=== PATIENT | male | born 1995 | race Caucasian/White ===

== ENCOUNTER 2017-12-01 21:41 | Emergency (ER) | payer OTHER ==
[~2017-12-01] VITALS: Ht 180.3 cm; Wt 133.4 kg
[2017-12-01 21:41] VITALS: BP_SYST 160
[2017-12-01 23:22] LABS: BILIRUBIN,URINE NEGATIVE (NEGATIVE); CLARITY/URINE CLEAR (CLEAR); COLOR,URINE YELLOW (YELLOW); GLUCOSE,URINE NEGATIVE (NEGATIVE); KETONES,URINE NEGATIVE (NEGATIVE); LEUKOCYTE ESTERASE ,URINE NEGATIVE (NEGATIVE); NITRITE, URINE NEGATIVE (NEGATIVE); PH,URINE 5.5 (5.0-8.0); PROTEIN URINE NEGATIVE (NEGATIVE); UROBILINOGEN,URINE 0.2 (0.2-1.0)
[2017-12-01 23:24] LABS: BLOOD, URINE TRACE (NEGATIVE)
--- NOTE | 2017-12-01 23:34 | NUR ---
Patient to ER bed 4 to gown for evaluation. Side rails up. Report given to Roseanne SHARP.
[2017-12-01 23:35] LABS: BACTERIA,URINE FEW /HPF (None Seen); RBC,URINE 0-3 /HPF (0-3); WBC,URINE 0-3 /HPF (0-3)
--- NOTE | 2017-12-01 23:40 | NUR ---
Patient AOx4, ambulatory, presents to ER with complaint of abdominal pain x30 minutes 04/13. Patient states no nausea or vomiting. No other symptoms or compliants at this time. Parents at bedside.
--- NOTE | 2017-12-01 23:48 | NUR ---
ER MD Lopez at bedside for medical evaluation.
[2017-12-02 00:49] LABS: BASOPHILS % (AUTO) 0.4 % (0.0-2.0); EOSINOPHILS # (AUTO) 0.1 K/uL (0.0-0.4); EOSINOPHILS % (AUTO) 1.2 % (0.0-4.0); HEMATOCRIT 43.9 % (36-54); LYMPHOCYTES # (AUTO) 2.6 K/uL (1.0-5.5); LYMPHOCYTES % (AUTO) 21.1 % (20.5-51.5); MEAN CORPUSCULAR HEMOGLOBIN 31 pg (27-31); MEAN CORPUSCULAR HGB CONC 34 % (32-36); MEAN CORPUSCULAR VOLUME 91 fL (79.0-98.0); MONOCYTES # (AUTO) 0.5 K/uL (0.0-1.0); MONOCYTES % (AUTO) 4.5 % (1.7-9.3); NEUTROPHILS % (AUTO) 72.8 % (40.0-70.0); PLATELET COUNT (AUTO) 263 K/uL (130-430); RED CELL DISTRIBUTION WIDTH 11.7 % (9.0-15.0); WHITE BLOOD COUNT (AUTO) 12.2 K/uL (4.5-11.0)
[2017-12-02 00:56] LABS: CALCIUM 8.8 mg/dL (8.4-11.0); CREATININE 0.87 mg/dL (0.55-1.30); POTASSIUM 3.8 mmol/L (3.5-5.1)
[2017-12-02 01:01] LABS: ALBUMIN 3.7 g/dL (3.4-4.8); TOTAL BILIRUBIN 0.4 mg/dL (0.0-1.0)
[2017-12-02 01:33] VITALS: BP_SYST 134
--- NOTE | 2017-12-02 01:33 | NUR ---
Patient given written and verbal discharge instructions and verbalizes understanding. ER MD discussed with patient the results and treatment provided. Patient in stable condition. ID arm band removed. Patient educated on pain management and to follow up with PMD. Pain Scale 2/10 tolerable to patient. Opportunity for questions provided and answered.
== END 2017-12-02 01:33 | disposition home or self-care (01) ==
LOC: SED 21:41
DX: R10.30 Lower abdominal pain, unspecified (principal); R11.0 Nausea; G43.909 Migraine, unspecified, not intractable, without status migrainosus
CPT/HCPCS: 36415; 74021; 80053; 81000-TC; 85025; 99285

== ENCOUNTER 2019-03-15 18:57 | Emergency (ER) | payer OTHER ==
[~2019-03-15] VITALS: Ht 177.8 cm; Wt 113.4 kg
[2019-03-15 19:26] VITALS: BP_SYST 152
[2019-03-15 20:38] VITALS: BP_SYST 150
== END 2019-03-15 20:38 | disposition home or self-care (01) ==
LOC: SED 18:57
DX: H57.12 Ocular pain, left eye (principal); G43.909 Migraine, unspecified, not intractable, without status migrainosus; Z77.098 Contact with and (suspected) exposure to other hazardous, chiefly nonmedicinal, chemicals
CPT/HCPCS: 99281

== ENCOUNTER 2019-06-06 00:14 | Emergency (ER) | payer OTHER ==
[~2019-06-06] VITALS: Ht 177.8 cm; Wt 113.4 kg
[2019-06-06 00:47] VITALS: BP_SYST 129
[2019-06-06] MEDS ORDERED: IBUPROFEN 800 MG TABLET PO ONE (01:45)
[2019-06-06] MEDS ORDERED: AMOXICILLIN 500 MG CAPSULE PO ONE (01:45)
[2019-06-06] MEDS ORDERED: LIDOCAINE VISCOUS 2%, 15 ML UDC MM ONE (01:45)
[2019-06-06 02:19] VITALS: BP_SYST 129
== END 2019-06-06 02:19 | disposition home or self-care (01) ==
LOC: SED 00:14
DX: J02.8 Acute pharyngitis due to other specified organisms (principal); B96.89 Other specified bacterial agents as the cause of diseases classified elsewhere
CPT/HCPCS: 99284; J2001

== ENCOUNTER 2019-10-22 05:55 | Emergency (ER) | payer OTHER ==
[~2019-10-22] VITALS: Ht 180.3 cm; Wt 111.1 kg
[2019-10-22 06:00] VITALS: BP_SYST 144
--- NOTE | 2019-10-22 06:04 | NUR ---
Patient to ER bed 8 to gown for evaluation. Side rails up. Report given to Ariel SHARP and Devon SHARP.
--- NOTE | 2019-10-22 06:07 | NUR ---
Patient complains of pain to right great toe x 6 months due to an "in grown" nail. Per patient, no fever, N/V, swelling. No other injuries/cpmplaints per patient or noted.
--- NOTE | 2019-10-22 06:38 | NUR ---
ER Dr. Aldrich at bedside examining patient.
[2019-10-22] MEDS ORDERED: KETOROLAC TROMETHAMINE 60 MG/2 ML VIAL IM ONE (06:45)
--- NOTE | 2019-10-22 06:53 | NUR ---
Medication was given, pt tolerated well. No adverse reaction, will continue to monitor.
[2019-10-22 07:03] VITALS: BP_SYST 144
--- NOTE | 2019-10-22 07:03 | NUR ---
Patient given written and verbal discharge instructions and verbalizes understanding. ER MD discussed with patient the results and treatment provided. Patient in stable condition. ID arm band removed. Rx of Motrin and Keflex given. Patient educated on pain management and to follow up with PMD. Pain Scale 2. Opportunity for questions provided and answered. Medication side effect fact sheet provided.
== END 2019-10-22 07:03 | disposition home or self-care (01) ==
LOC: SED 05:55
DX: L60.0 Ingrowing nail (principal); L03.90 Cellulitis, unspecified; F17.200 Nicotine dependence, unspecified, uncomplicated
CPT/HCPCS: 96372; 99283; J1885

== ENCOUNTER 2019-11-16 07:55 | Emergency (ER) | payer OTHER ==
[~2019-11-16] VITALS: Ht 162.6 cm; Wt 111.1 kg
--- NOTE | 2019-11-16 08:03 | NUR ---
Patient to ER bed H1 to gown for evaluation. Side rails up.
[2019-11-16 08:04] VITALS: BP_SYST 166
--- NOTE | 2019-11-16 08:04 | NUR ---
Dr Shirley at bedside examining patient
--- NOTE | 2019-11-16 08:04 | NUR ---
Pt brought by self, A&Ox4, pt presents to ER with cough, congestion x 2 days, skin pink and warm, cap refill <3, VSS, respirations even and unlabored
--- NOTE | 2019-11-16 08:14 | NUR ---
Patient given written and verbal discharge instructions and verbalizes understanding. ER MD discussed with patient the results and treatment provided. Patient in stable condition. ID arm band removed. Rx of Tessalon pearls given. Patient educated on pain management and to follow up with PMD. Pain Scale 3/10 tolerable for patient . Opportunity for questions provided and answered. Medication side effect fact sheet provided.
== END 2019-11-16 08:14 | disposition home or self-care (01) ==
LOC: SED 07:55
DX: J06.9 Acute upper respiratory infection, unspecified (principal)
CPT/HCPCS: 99283

== ENCOUNTER 2020-07-13 13:48 | Emergency (ER) | payer OTHER ==
[~2020-07-13] VITALS: Ht 177.8 cm; Wt 117.9 kg
[2020-07-13 13:55] VITALS: BP_SYST 153
[2020-07-13 14:58] LABS: BASOPHILS % (AUTO) 0.5 % (0.0-2.0); EOSINOPHILS # (AUTO) 0.2 K/uL (0.0-0.4); EOSINOPHILS % (AUTO) 1.6 % (0.0-4.0); HEMATOCRIT 44.2 % (36-54); HEMOGLOBIN 15.3 g/dL (14.0-18.0); LYMPHOCYTES # (AUTO) 2.3 K/uL (1.0-5.5); LYMPHOCYTES % (AUTO) 22.3 % (20.5-51.5); MEAN CORPUSCULAR HEMOGLOBIN 32 pg (27-31); MEAN CORPUSCULAR HGB CONC 35 % (32-36); MEAN CORPUSCULAR VOLUME 93 fL (79.0-98.0); MONOCYTES # (AUTO) 0.7 K/uL (0.0-1.0); MONOCYTES % (AUTO) 7.3 % (1.7-9.3); NEUTROPHILS # (AUTO) 6.9 K/uL (1.8-7.7); NEUTROPHILS % (AUTO) 68.3 % (40.0-70.0); PLATELET COUNT (AUTO) 239 K/uL (130-430); RED BLOOD CELL COUNT(AUTO) 4.74 MIL/uL (4.2-6.2); RED CELL DISTRIBUTION WIDTH 12.7 % (9.0-15.0); WHITE BLOOD COUNT (AUTO) 10.2 K/uL (4.8-10.8)
[2020-07-13 15:08] LABS: BILIRUBIN,URINE NEGATIVE (NEGATIVE); BLOOD, URINE NEGATIVE (NEGATIVE); COLOR,URINE YELLOW (YELLOW); GLUCOSE,URINE NEGATIVE (NEGATIVE); KETONES,URINE NEGATIVE (NEGATIVE); LEUKOCYTE ESTERASE ,URINE NEGATIVE (NEGATIVE); NITRITE, URINE NEGATIVE (NEGATIVE); PH,URINE 7.5 (5.0-8.0); PROTEIN URINE NEGATIVE (NEGATIVE); UROBILINOGEN,URINE 0.2 (0.2-1.0)
[2020-07-13 15:14] LABS: CREATININE 0.98 mg/dL (0.55-1.30); POTASSIUM 3.9 mmol/L (3.5-5.1)
[2020-07-13 15:17] LABS: CLARITY/URINE SLIGHTLY CLOUDY (CLEAR)
[2020-07-13 15:19] LABS: BACTERIA,URINE RARE /HPF (None Seen); RBC,URINE NONE SEEN /HPF (0-3)
[2020-07-13 15:20] LABS: MUCUS,URINE None Seen /LPF (None Seen)
[2020-07-13 15:27] LABS: ALBUMIN 3.9 g/dL (3.4-4.8); TOTAL BILIRUBIN 0.7 mg/dL (0.0-1.0)
[2020-07-13 15:37] LABS: BARBITURATE, URINE NEGATIVE (NEG <=200); BENZODIAZEPINE, URINE NEGATIVE (NEG <=150); CANNABINOID, URINE NEGATIVE (NEG <=50); COCAINE, URINE NEGATIVE (NEG <=150); METHAMPHETAMINES SCREEN,URINE NEGATIVE (NEG <=500); OPIATE, URINE NEGATIVE (NEG <=100); PHENCYCLIDINE SCREEN,URINE NEGATIVE (NEG <=25); UR TRICYCLIC ANTIDEPRESSANTS NEGATIVE (NEG <=300); URINE AMPHETAMINE NEGATIVE (NEG <=500); URINE METHADONE NEGATIVE (NEG <=200); URINE OXYCODONE SCREEN NEGATIVE (NEG <=100); URINE PROPOXYPHENE SCREEN NEGATIVE (NEG <=300)
[2020-07-13 16:47] VITALS: BP_SYST 128
== END 2020-07-13 16:48 | disposition home or self-care (01) ==
LOC: SED 13:48
DX: G44.201 Tension-type headache, unspecified, intractable (principal)
CPT/HCPCS: 36415; 80053; 80307; 81000-TC; 85025; 87086; 93005; 99283

== ENCOUNTER 2020-07-17 11:45 | Emergency (ER) | payer OTHER ==
[~2020-07-17] VITALS: Ht 177.8 cm; Wt 113.4 kg
[2020-07-17 11:48] VITALS: BP_SYST 123
--- NOTE | 2020-07-17 11:48 | NUR ---
BROUGHT BACK TO BED #6 AND TRIAGED. REPORT GIVEN TO RA
--- NOTE | 2020-07-17 11:49 | NUR ---
Patient arrived in the ED c/o migraine headaches for the last 5 days. Been seen for it, no relief. Denied any chest pain or shortness of breath. Denied any fevers, chills, nausea or vomiting. Patient is alert and oriented x4, respirations even and unlabored, speaking in full sentences, and ambulating with a steady gait. VSS, pain level 8/10 - Taking Naproxen for it. Informed of the approximate wait time. Instructed to notify ED staff for any changes in condition or worsening of symptoms while waiting to be seen by an ED provider. Patient verbalized understanding.
--- NOTE | 2020-07-17 12:50 | NUR ---
ER at bedside examining patient.
[2020-07-17] MEDS ORDERED: KETOROLAC TROMETHAMINE 60 MG/2 ML VIAL IM ONE (13:00)
--- NOTE | 2020-07-17 13:17 | NUR ---
Patient given written and verbal discharge instructions and verbalizes understanding. ER MD discussed with patient the results and treatment provided. Patient in stable condition. ID arm band removed. Rx of Ibuprofen given. Patient educated on pain management and to follow up with PMD. Pain Scale 0/10. Opportunity for questions provided and answered. Medication side effect fact sheet provided.
[2020-07-17 13:19] VITALS: BP_SYST 123
== END 2020-07-17 13:17 | disposition home or self-care (01) ==
LOC: SED 11:45
DX: R51 Headache (principal)
CPT/HCPCS: 96372; 99283; J1885

== ENCOUNTER 2020-07-18 14:31 | Emergency (ER) | payer OTHER ==
[~2020-07-18] VITALS: Ht 177.8 cm; Wt 113.4 kg
[2020-07-18 14:41] VITALS: BP_SYST 174
--- NOTE | 2020-07-18 14:45 | NUR ---
Pt walked in to ER with c/o headache x2 days, 9/10 pain. Reports hx of migraines, was here in ER yesterday with same complaint. V/S stable, pt is afebrile. Currently sitting in hallway, will continue to monitor.
--- NOTE | 2020-07-18 14:51 | NUR ---
ER at bedside examining patient.
--- NOTE | 2020-07-18 14:55 | NUR ---
Pt to CT scan via wheelchair, accompanied by staff.
[2020-07-18 15:47] VITALS: BP_SYST 174
--- NOTE | 2020-07-18 15:48 | NUR ---
Patient given written and verbal discharge instructions and verbalizes understanding. ER MD discussed with patient the results and treatment provided. Patient in stable condition. ID arm band removed. Rx of given. Patient educated on pain management and to follow up with PMD. Pain Scale 0/10. Opportunity for questions provided and answered. Medication side effect fact sheet provided.
== END 2020-07-18 15:47 | disposition home or self-care (01) ==
LOC: SED 14:31
DX: R51 Headache (principal)
CPT/HCPCS: 70450-TC; 99284

== ENCOUNTER 2022-01-24 12:46 | Emergency (ER) | payer OTHER ==
[~2022-01-24] VITALS: Ht 177.8 cm; Wt 131.5 kg
[2022-01-24 12:46] VITALS: BP_SYST 132
--- NOTE | 2022-01-24 12:46 | NUR ---
BROUGHT BACK TO BED #7 AND TRIAGED. REPORT GIVEN TO ABEL
--- NOTE | 2022-01-24 12:47 | NUR ---
Pt brought by self , A&Ox4, pt presents to ER with cough/ congestion after a trip to [place], afebrile at this time, skin pink and warm, cap refill <3, VSS, respirations even and unlabored, will cont to monitor.
[2022-01-24] MEDS ORDERED: NACL 0.9% 1,000 ML IV ONE (13:30)
--- NOTE | 2022-01-24 13:44 | NUR ---
ER at bedside examining patient.
[2022-01-24 13:52] LABS: BASOPHILS % (AUTO) 0.7 % (0.0-2.0); EOSINOPHILS # (AUTO) 0.1 K/uL (0.0-0.4); HEMATOCRIT 41.6 % (36-54); HEMOGLOBIN 14.3 g/dL (14.0-18.0); LYMPHOCYTES # (AUTO) 0.6 K/uL (1.0-5.5); LYMPHOCYTES % (AUTO) 9.1 % (20.5-51.5); MEAN CORPUSCULAR HEMOGLOBIN 31 pg (27-31); MEAN CORPUSCULAR HGB CONC 34 % (32-36); MEAN CORPUSCULAR VOLUME 91 fL (79.0-98.0); MONOCYTES # (AUTO) 0.7 K/uL (0.0-1.0); MONOCYTES % (AUTO) 11.7 % (1.7-9.3); NEUTROPHILS # (AUTO) 4.7 K/uL (1.8-7.7); NEUTROPHILS % (AUTO) 77.5 % (40.0-70.0); PLATELET COUNT (AUTO) 183 K/uL (130-430); RED BLOOD CELL COUNT(AUTO) 4.59 MIL/uL (4.2-6.2); RED CELL DISTRIBUTION WIDTH 12.8 % (9.0-15.0)
[2022-01-24 14:09] LABS: CALCIUM 9.1 mg/dL (8.4-11.0); CREATININE 1.14 mg/dL (0.55-1.30); POTASSIUM 4.1 mmol/L (3.5-5.1)
[2022-01-24 14:15] LABS: ALBUMIN 3.7 g/dL (3.4-4.8); TOTAL BILIRUBIN 0.5 mg/dL (0.0-1.0)
[2022-01-24] MEDS ORDERED: IBUPROFEN 600 MG TABLET PO ONE (14:15)
[2022-01-24] MEDS ORDERED: OSELTAMIVIR PHOSPHATE 75 MG CAPSULE PO ONE (14:30)
[2022-01-24] MEDS ORDERED: OSEL75CA PO (15:18)
[2022-01-24] MEDS ORDERED: IBUP-1971 PO (15:18)
--- NOTE | 2022-01-24 15:43 | NUR ---
Patient given written and verbal discharge instructions and verbalizes understanding. ER discussed with patient the results and treatment provided. Patient in stable condition. ID arm band removed. IV catheter removed intact and dressing applied, no active bleeding. Rx of Motrin and Tamiflu given. Patient educated on pain management and to follow up with PMD. Pain Scale 0. Opportunity for questions provided and answered. Medication side effect fact sheet provided.
[2022-01-24 15:44] VITALS: BP_SYST 100
== END 2022-01-24 15:43 | disposition home or self-care (01) ==
LOC: SED 12:46
DX: R05.9 Cough, unspecified (principal); R50.9 Fever, unspecified; Z20.822 Contact with and (suspected) exposure to COVID-19
CPT/HCPCS: 36415; 71045; 80053; 83605; 83690; 85025; 87040; 87426; 87804 ×2; 96360; 99284; G9035; J7030

== ENCOUNTER 2022-06-22 20:12 | Emergency (ER) | payer OTHER, MEDICAID ==
[~2022-06-22] VITALS: Ht 177.8 cm; Wt 145.1 kg
[~2022-06-22 20:12] MED LIST: IBUP-1971 PO; OSEL75CA PO
[2022-06-22 20:20] VITALS: BP_SYST 119
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
--- NOTE | 2022-06-22 20:30 | NUR ---
DR. VALENTINO ASSESSING PATIENT IN TRIAGE.
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
--- NOTE | 2022-06-22 20:56 | NUR ---
Pt taken to CT scan
[2022-06-22] MEDS ORDERED: SILVER SULFADIAZINE 1%, 25 GM TOPICAL CREAM (SSD) TP ONE (22:00)
[2022-06-22] MEDS ORDERED: ONDANSETRON HCL 4 MG/2 ML VIAL IVP ONE (22:00)
[2022-06-22] MEDS ORDERED: NACL 0.9% 1,000 ML IV ONE (22:00)
[2022-06-22] MEDS ORDERED: MORPHINE 4 MG INJ. 4 MG/ML VIAL IVP ONE (22:00)
[2022-06-22] MEDS ORDERED: DIPHTH,PERTUSS(ACELL),TET VAC 0.5 ML VIAL (Tdap) I.M. ONE (22:30)
[2022-06-22] MEDS ORDERED: NAPR-1172 PO (22:37)
[2022-06-22] MEDS ORDERED: CEPH-548 PO (22:37)
[2022-06-22] MEDS ORDERED: BACITRACIN 1 GM OINT TP ONE ×2 (22:45→23:08)
[2022-06-22 23:26] VITALS: BP_SYST 129
--- NOTE | 2022-06-22 23:26 | NUR ---
Irrigated all wounds copious amounts of 0.9% N.S.
--- NOTE | 2022-06-22 23:27 | NUR ---
Dressed wounds w. Bacitracin, non-adherent gauze, curlex gauze, & tubular gauze.
--- NOTE | 2022-06-22 23:28 | NUR ---
PT CLEARED FOR DC @3110 PT ADVISED TO FOLLOW UP WITH PCP PT ADVISED TO RETURN TO THE ED IF S/S WORSEN PT VERBALIZED UNDERSTANDING OF DC TEACHING PT AMBULATORY WITH STEADY GAIT VSS NAD
== END 2022-06-22 23:26 | disposition home or self-care (01) ==
LOC: SED 20:12
DX: S70.02XA Contusion of left hip, initial encounter (principal); S50.812A Abrasion of left forearm, initial encounter; S60.512A Abrasion of left hand, initial encounter; Z79.899 Other long term (current) drug therapy; V29.9XXA Motorcycle rider (driver) (passenger) injured in unspecified traffic accident, initial encounter; Y93.89 Activity, other specified; Y92.89 Other specified places as the place of occurrence of the external cause; Y99.8 Other external cause status
CPT/HCPCS: 99284; 71250; 96374; 96361; 96375; 73090; 76376; 74176; 90715; J2405; J2270; J7030

== ENCOUNTER 2023-09-09 21:42 | Emergency (ER) | payer MEDICAID, OTHER ==
[~2023-09-09] VITALS: Ht 180.3 cm; Wt 140.6 kg
[~2023-09-09 21:42] MED LIST changes: +CEPH-548 PO; +NAPR-1172 PO
[2023-09-09 21:48] VITALS: BP_SYST 134; PULSE 86; RESP 18; TEMP 98.3; O2SAT 99
[2023-09-09 23:05] VITALS: BP_SYST 134; PULSE 86; RESP 18; TEMP 98.3; O2SAT 99
== END 2023-09-09 23:08 | disposition home or self-care (01) ==
LOC: SED 21:42
DX: S90.32XA Contusion of left foot, initial encounter (principal); Z79.899 Other long term (current) drug therapy; W20.8XXA Other cause of strike by thrown, projected or falling object, initial encounter; Y93.89 Activity, other specified; Y92.89 Other specified places as the place of occurrence of the external cause; Y99.8 Other external cause status
CPT/HCPCS: 99283

== ENCOUNTER 2024-04-21 18:48 | Emergency (ER) | payer OTHER ==
[~2024-04-21] VITALS: Ht 180.3 cm; Wt 140.6 kg
[2024-04-21 18:55] VITALS: BP_SYST 124; PULSE 115; RESP 18; TEMP 100.5; O2SAT 98
[2024-04-21] MEDS ORDERED: PIPERACILLIN/TAZO 3.375 GM in D5W 50 ML IV SCH (19:30)
[2024-04-21 19:53] LABS: HEMOGLOBIN 14.8 g/dL (14.0-18.0); MONOCYTES # (AUTO) 0.8 K/uL (0.0-1.0); RED CELL DISTRIBUTION WIDTH 12.8 % (9.0-15.0)
[2024-04-21] MEDS: NACL 0.9% 1,000 ML IV ONE (20:08)
[2024-04-21] MEDS ORDERED: PIPERACILLIN/TAZOBACTAM 3.375 GM/VIAL (ZOSYN) IV ONE (20:08)
[2024-04-21 20:12] LABS: BASOPHILS % (AUTO) 0.2 % (0.0-2.0); EOSINOPHILS # (AUTO) 0.1 K/uL (0.0-0.4); HEMATOCRIT 42.1 % (36-54); LYMPHOCYTES # (AUTO) 1.3 K/uL (1.0-5.5); LYMPHOCYTES % (AUTO) 9.9 % (20.5-51.5); MEAN CORPUSCULAR HEMOGLOBIN 32 pg (27-31); MEAN CORPUSCULAR HGB CONC 35 % (32-36); MEAN CORPUSCULAR VOLUME 90 fL (79.0-98.0); NEUTROPHILS # (AUTO) 11.1 K/uL (1.8-7.7); NEUTROPHILS % (AUTO) 82.9 % (40.0-70.0); PLATELET COUNT (AUTO) 202 K/uL (130-430); RED BLOOD CELL COUNT(AUTO) 4.69 MIL/uL (4.2-6.2); WHITE BLOOD COUNT (AUTO) 13.4 K/uL (4.8-10.8)
[2024-04-21 20:13] LABS: ALBUMIN 3.5 g/dL (3.4-4.8); BILIRUBIN,DIRECT 0.3 mg/dL (0.0-0.3); CALCIUM 8.8 mg/dL (8.4-11.0); CREATININE 1.02 mg/dL (0.55-1.30); POTASSIUM 3.7 mmol/L (3.5-5.1); TOTAL BILIRUBIN 0.9 mg/dL (0.0-1.0); TOTAL PROTEIN, SERUM 7.5 g/dL (6.4-8.3)
[2024-04-21 20:15] LABS: INR 1.1 (0.80-1.20)
[2024-04-21] MEDS: KETOROLAC TROMETHAMINE 30 MG VIAL IVP ONE (20:16)
[2024-04-21] MEDS: DEXAMETHASONE SOD PHOSPHATE 10 MG/ML VIAL IVP ONE (20:16)
[2024-04-21] MEDS: PIPERACILLIN/TAZO 3.375 GM in D5W 50 ML IV ONE (20:18)
[2024-04-21] MEDS ORDERED: IBUP-1971 PO (20:30)
[2024-04-21] MEDS ORDERED: AMOX-423 PO (20:30)
[2024-04-21] MEDS: ACETAMINOPHEN 500 MG TABLET PO ONE (20:39)
[2024-04-21 22:00] VITALS: BP_SYST 124; PULSE 115; RESP 18; TEMP 98.9; O2SAT 98
== END 2024-04-21 22:20 | disposition home or self-care (01) ==
LOC: SED 18:48
DX: J03.90 Acute tonsillitis, unspecified (principal); Z79.899 Other long term (current) drug therapy; Z79.2 Long term (current) use of antibiotics
CPT/HCPCS: 99285; 96365; 96375; 71045; 80076; 80048; 85025; 85610; 85730; 87040; 36415; 93005; 83605; J1100; J1885; J2543

== ENCOUNTER 2024-07-30 15:12 | Emergency (ER) | payer OTHER ==
[~2024-07-30] VITALS: Ht 182.9 cm; Wt 143.3 kg
[~2024-07-30 15:12] MED LIST changes: +AMOX-423 PO
[2024-07-30 15:15] VITALS: BP_SYST 172; PULSE 114; RESP 20; TEMP 98.3; O2SAT 96
[2024-07-30 16:04] LABS: COVID19 ANTIGEN SOFIA FIA NEGATIVE (NEGATIVE)
[2024-07-30 16:10] LABS: INFLUENZA TYPE A Negative (NEGATIVE); INFLUENZA TYPE B NEGATIVE (NEGATIVE)
[2024-07-30] MEDS ORDERED: ALBMDI INH (18:32)
[2024-07-30] MEDS ORDERED: METH-776 PO (18:32)
[2024-07-30 18:39] VITALS: BP_SYST 142; PULSE 81; RESP 18; TEMP 98.3; O2SAT 98
== END 2024-07-30 18:39 | disposition home or self-care (01) ==
LOC: SED 15:12
DX: J45.909 Unspecified asthma, uncomplicated (principal); R07.89 Other chest pain; Z20.822 Contact with and (suspected) exposure to COVID-19; Z79.899 Other long term (current) drug therapy; Z79.2 Long term (current) use of antibiotics
CPT/HCPCS: 36415; 71045; 99284